=== PATIENT | female | born 1980 | race Caucasian/White ===

== ENCOUNTER → 2016-07-20 | Outpatient (CLI) | payer BC ==
[~2016-07-20] MED LIST: ONDA4TAB46 PO
== END | disposition home or self-care (01) ==
LOC: C.PAPS 11:50
PROVIDERS: ATTEND Physician Assistant
DX: Z01.419 Encounter for gynecological examination (general) (routine) without abnormal findings (principal)

== ENCOUNTER → 2016-09-07 | Outpatient (CLI) | payer BC | END | disposition home or self-care (01) | LOC: C.LAB1850 15:22 | PROVIDERS: ATTEND Internal Medicine Pulmonary Disease | DX: R53.83 Other fatigue (principal); J32.9 Chronic sinusitis, unspecified ==

== ENCOUNTER → 2017-07-26 | Outpatient (CLI) | payer OTHER | END | disposition home or self-care (01) | LOC: C.LABSPEC 14:08 | PROVIDERS: ATTEND Physician Assistant | DX: Z12.4 Encounter for screening for malignant neoplasm of cervix (principal) ==